=== PATIENT | female | born 1950 | race Caucasian/White ===

== ENCOUNTER 2018-01-13 15:05 | Emergency (ER) | payer OTHER | END 2018-01-13 19:22 | disposition home or self-care (01) | LOC: FTE 15:05 | DX: M22.3X1 Other derangements of patella, right knee (principal) | CPT/HCPCS: 73562; 99283-25 ==

== ENCOUNTER 2018-01-30 11:50 | Inpatient (IN) | payer OTHER ==
[2018-01-30 15:49] LABS: ADD MAN DIFF? NO
[2018-01-30] MEDS: NITROGLYCERIN 2% 1 GM OINT PKT TD (15:52)
[2018-01-30 15:53] LABS: WHITE BLOOD COUNT 17.2 10^3/ul (4.8-10.8)
[2018-01-30 15:53] LABS: BASOPHIL # 0.1 10^3/ul (0.0-0.1); BASOPHILS % 0.4 % (0.0-2.0); HEMATOCRIT 38.4 % (37.0-47.0); HEMOGLOBIN 12.6 g/dl (12.0-16.0); LYMPHOCYTES # 1.4 10^3/ul (0.8-2.9); LYMPHOCYTES % 7.8 % (15.0-51.0); MEAN CORPUSCULAR HEMOGLOBIN 29.6 pg (29.0-33.0); MEAN CORPUSCULAR HGB CONC 32.8 g/dl (32.0-37.0); MEAN CORPUSCULAR VOLUME 90.4 fl (82.0-101.0); MEAN PLATELET VOLUME 12.2 fl (7.4-10.4); MONOCYTE # 0.8 10^3/ul (0.3-0.9); MONOCYTES % 4.8 % (0.0-11.0); NEUTROPHIL # 14.9 10^3/ul (1.6-7.5); NEUTROPHILS % 86.7 % (39.0-77.0); PLATELET COUNT 246 10^3/UL (140-415); RED BLOOD COUNT 4.25 10^6/ul (4.20-5.40); RED CELL DISTRIBUTION WIDTH 13.8 % (11.5-14.5)
[2018-01-30 16:11] LABS: ANION GAP 17 (8-16); BLOOD UREA NITROGEN 14 mg/dl (7-20); CALCIUM 9.5 mg/dl (8.4-10.2); CARBON DIOXIDE 29 mmol/L (21-31); CHLORIDE 100 mmol/L (97-110); CREATININE 0.78 mg/dl (0.44-1.00); GLUCOSE 103 mg/dl (70-220); POTASSIUM 3.9 mmol/L (3.5-5.1); SODIUM 142 mmol/L (135-144)
[2018-01-30 16:24] LABS: INR 1.02; PROTIME 13.5 Sec (11.9-14.9); PT RATIO 1.1
[2018-01-30 16:25] LABS: PARTIAL THROMBOPLASTIN TIME 29.4 Sec (25.0-35.0)
[2018-01-30 16:27] LABS: D-DIMER 296.04 ng/ml (<460); TROPONIN-I < 0.012 ng/ml (0.00-0.12)
[2018-01-30] MEDS ORDERED: ONDANSETRON 4 MG INJ IV ×2 (17:00→20:00)
[2018-01-30] MEDS ORDERED: ACETAMINOPHEN 325 MG TAB PO (17:00)
[2018-01-30] MEDS ORDERED: morphine 2 MG INJ IV (20:00)
[2018-01-30] MEDS ORDERED: MAGNESIUM HYDROXIDE 30ML CUP PO (20:00)
[2018-01-30] MEDS ORDERED: NACL 0.9% 3 ML SYG IV (20:00)
[2018-01-30] MEDS ORDERED: DOCUSATE SODIUM 100 MG CAP PO (20:00)
[2018-01-30] MEDS ORDERED: HYDROCODONE/APAP (5/325) TAB PO (20:00)
[2018-01-30] MEDS ORDERED: ZOLPIDEM 5 MG TAB PO (20:00)
[2018-01-30] MEDS: CEFTRIAXONE 1 GM/50 ML (PMX) 50 ML IVPB (20:38)
[2018-01-30] MEDS: AZITHROMYCIN 500MG/NS (PMX) 250 ML IVPB (21:17)
[2018-01-30] MEDS: ATORVASTATIN 40 MG TAB PO (22:07)
[2018-01-30 22:53] LABS: CREATINE KINASE 61 IU/L (23-200)
[2018-01-30 23:04] LABS: CK INDEX 0.8; CK-MB 0.49 ng/ml (0.0-2.4); TROPONIN-I < 0.012 ng/ml (0.00-0.12)
[2018-01-31 03:27] LABS: ADD MAN DIFF? NO
[2018-01-31 03:58] LABS: ABNORMAL IP MESSAGE 1; ANION GAP 13 (8-16); BASOPHIL # 0.1 10^3/ul (0.0-0.1); BASOPHILS % 0.4 % (0.0-2.0); BLOOD UREA NITROGEN 17 mg/dl (7-20); CALCIUM 8.7 mg/dl (8.4-10.2); CARBON DIOXIDE 26 mmol/L (21-31); CHLORIDE 104 mmol/L (97-110); CHOL/HDL RATIO 3.4 RATIO; CHOLESTEROL 170 mg/dl (100-200); CREATINE KINASE 62 IU/L (23-200); CREATININE 0.76 mg/dl (0.44-1.00); EOSINOPHILS % 0.1 % (0.0-7.0); GLUCOSE 111 mg/dl (70-220); HDL CHOLESTEROL 50 mg/dl (35-98); HEMATOCRIT 32.8 % (37.0-47.0); HEMOGLOBIN 11.2 g/dl (12.0-16.0); LDL CHOLESTEROL,CALCULATED 107 mg/dl; LYMPHOCYTES # 2.1 10^3/ul (0.8-2.9); LYMPHOCYTES % 16.7 % (15.0-51.0); MAGNESIUM 2.1 mg/dl (1.7-2.5); MEAN CORPUSCULAR HEMOGLOBIN 30.4 pg (29.0-33.0); MEAN CORPUSCULAR HGB CONC 34.1 g/dl (32.0-37.0); MEAN CORPUSCULAR VOLUME 88.9 fl (82.0-101.0); MEAN PLATELET VOLUME 13.1 fl (7.4-10.4); MONOCYTES % 7.9 % (0.0-11.0); NEUTROPHIL # 9.3 10^3/ul (1.6-7.5); NEUTROPHILS % 74.5 % (39.0-77.0); PHOSPHORUS 4.2 mg/dl (2.5-4.9); PLATELET COUNT 158 10^3/UL (140-415); POTASSIUM 4.2 mmol/L (3.5-5.1); RED BLOOD COUNT 3.69 10^6/ul (4.20-5.40); RED CELL DISTRIBUTION WIDTH 14.1 % (11.5-14.5); SODIUM 139 mmol/L (135-144); TRIGLYCERIDES 64 mg/dl (0-149)
[2018-01-31 03:58] LABS: WHITE BLOOD COUNT 12.5 10^3/ul (4.8-10.8)
[2018-01-31 04:03] LABS: POSITIVE DIFF @See below
[2018-01-31 04:09] LABS: CK INDEX 0.5
[2018-01-31 04:32] LABS: TROPONIN-I < 0.012 ng/ml (0.00-0.12)
[2018-01-31 04:34] LABS: FREE THYROXINE INDEX (Calc) 2.43 ug/ml (0.65-3.89); T3 UPTAKE 33.7 % (23.5-40.5); T4 (THYROXINE) 7.2 ug/dl (5.5-11.0)
[2018-01-31 04:46] LABS: HEMOGLOBIN A1C 5.5 % (0-5.9)
[2018-01-31] MEDS: PANTOPRAZOLE (EC) 40 MG TAB PO (05:42)
[2018-01-31] MEDS: ACETAMINOPHEN 325 MG TAB PO (05:44)
[2018-01-31] MEDS: ASPIRIN (EC) 325 MG TAB PO (07:57)
[2018-01-31] MEDS: ENOXAPARIN 40 MG/0.4 ML SYG SC (08:03)
[2018-01-31 15:38] LABS: ADD UMIC YES; UR ASCORBIC ACID NEGATIVE (NEGATIVE); UR BACTERIA FEW /HPF (NONE SEEN); UR BILIRUBIN (Dip) NEGATIVE (NEGATIVE); UR BLOOD (Dip) 1+ mg/dL (NEGATIVE); UR CLARITY CLEAR (CLEAR); UR COLOR STRAW (YELLOW); UR GLUCOSE (Dip) NEGATIVE (NEGATIVE); UR KETONES (Dip) NEGATIVE (NEGATIVE); UR LEUKOCYTE ESTERASE (Dip) NEGATIVE Leu/ul (NEGATIVE); UR NITRITE (Dip) NEGATIVE (NEGATIVE); UR RBC 1 /HPF (0-5); UR SPECIFIC GRAVITY (Dip) 1.004 (1.003-1.030); UR TOTAL PROTEIN (Dip) NEGATIVE (NEGATIVE); UR UROBILINOGEN (Dip) NEGATIVE (NEGATIVE); UR WBC 0 /HPF (0-5)
== END 2018-01-31 18:19 | disposition home or self-care (01) | DRG 194 ==
LOC: MS3 18:39 → E/R 11:50 → MS3 17:00
DX: J18.9 Pneumonia, unspecified organism (principal); R65.10 Systemic inflammatory response syndrome (SIRS) of non-infectious origin without acute organ dysfunction; K21.9 Gastro-esophageal reflux disease without esophagitis; Y95 Nosocomial condition; R07.89 Other chest pain; Z79.82 Long term (current) use of aspirin
CPT/HCPCS: 36415; 71045; 80048; 80061; 81001; 82550; 82553; 83036; 83735; 84100; 84436; 84479; 84484; 85025; 85378; 85610; 85730; 87086; 87400; 93005; 93306; 99285-25; G0378

== ENCOUNTER 2018-05-10 13:53 | Day surgery (SDC) | payer OTHER | END 2018-05-10 16:54 | disposition home or self-care (01) | LOC: GIL 13:53 | DX: Z12.11 Encounter for screening for malignant neoplasm of colon (principal); D12.6 Benign neoplasm of colon, unspecified; K21.9 Gastro-esophageal reflux disease without esophagitis; K29.60 Other gastritis without bleeding; K64.8 Other hemorrhoids; E66.9 Obesity, unspecified; Z68.31 Body mass index [BMI] 31.0-31.9, adult | CPT/HCPCS: 43239; 88305 ==